=== PATIENT | female | born 1945 | race Caucasian/White ===

== ENCOUNTER 2024-07-31 16:12 | Emergency (ER) | payer MEDICARE, BC, SELFPAY ==
--- NOTE | 2024-07-31 16:26 | XR_ITS ---
Examination: CT abdomen and pelvis without contrast. Coronal 3-D reconstructions. Sagittal 2-D reconstructions. Date and time of exam:July 31, 2024 1719 hours INDICATIONS: Right upper abdominal pain beginning a few days ago COMPARISON: 06/01/2022 CTDI: vol (mGy): 9.38 DLP: (mGycm): 478 Technique: Axial images of the abdomen have been obtained, 3 mm slice thickness Intravenous contrast material has not been administered. Low dose protocols were performed. One or more of the following dose reduction techniques were used; automated exposure control, adjustment of the mA and/or KV according to patient size, use of iterative reconstruction technique. Findings: Focal pleural disease posterior right hemithorax measuring 18 mm in thickness Again noted large complex cystic mass replacing the lower lobe the liver with more internal echoes on the current exam No extrahepatic biliary tract dilatation Moderate renal parenchymal scar formation, no hydronephrosis No pericecal inflammatory change No bowel obstruction currently Abdominal aortic calcification no aneurysmal dilatation Prominent osteopenia Abundant stool in the rectum IMPRESSION: Again noted large complex cystic mass replacing the right lobe the liver, differential would include abscess, parasitic cystic disease, less likely hematoma Large amounts of stool in the rectum
[2024-07-31 16:28] VITALS: BP 127/55; PULSE 117; RESP 19; TEMP 36.7; O2SAT 92
--- NOTE | 2024-07-31 16:28 | PD.EDADULT ---
ED General RME/HPI General Chief complaint: Abdominal Pain Stated complaint: ABD PAIN Time Seen by Provider: 07/31/24 16:26 Arrival date/time: 07/31/24 16:12 CC: Right upper quadrant abdominal pain HPI ongoing for the past week to 10 days with progressive increase in severity, now severe enough does not manage with OTC medications patient presents via EMS who reports stable vital signs and route. Patient is awake alert oriented states she has had a left-sided stroke, is on blood thinners denies chest pain shortness of breath difficulty breathing. Related Data Home Medications ?Medication ?Instructions ?Recorded ?Confirmed albuterol sulfate 90 mcg/actuation 2 puff inhalation PRN PRN sob 09/05/21 07/14/24 aerosol inhaler fluticasone fur. 100 mcg-umeclid 1 ea inhalation QAM 09/05/21 07/14/24 62.5 mcg-vilant 25 mcg inhalat.powder (Trelegy Ellipta) atorvastatin 20 mg tablet 80 mg PO QDAY 07/14/24 07/14/24 duloxetine 30 mg capsule,delayed 30 mg PO QDAY 07/14/24 07/14/24 release famotidine 20 mg tablet 20 mg PO BID 07/14/24 07/14/24 propranolol 10 mg tablet 10 mg PO BID 07/14/24 07/14/24 Previous Rx's ?Medication ?Instructions ?Recorded clopidogrel 75 mg tablet (Plavix) 75 mg PO QDAY #30 tabs 09/08/21 apixaban 5 mg tablet (Eliquis) 5 mg PO BID #60 tabs 07/16/24 furosemide 20 mg tablet 20 mg PO BID #60 tabs 07/16/24 hydrocodone 5 mg-acetaminophen 325 1 tab PO Q6H PRN pain #20 tabs 07/16/24 mg tablet docusate sodium 100 mg capsule 100 mg PO QDAY #10 caps 07/31/24 (Colace) polyethylene glycol 3350 17 4 g PO QDAY #238 grams 07/31/24 gram/dose oral powder (Miralax) Allergies Allergy/AdvReac Type Severity Reaction Status Date / Time No Known Allergies Allergy Verified 06/29/22 14:28 Review of Systems Review of Systems Narrative Review of Systems: GEN: No fever, no chills, no weight loss EYES: No discharge, no visual changes, no pain HEENT: No ear pain, no congestion, no sore throat PULM: No shortness of breath, no cough, no congestion CV: No chest pain, no dyspnea on exertion, no palpitations GI: No nausea, no vomiting, no diarrhea, + pain, no constipation : No frequency, no urgency, no dysuria MUSC/SKEL: No joint pain, no back pain SKIN: No rash PSYCH: No hallucinations, no depression HEME/LYMPH: No easy bleeding or bruising tendencies NEURO: No weakness, no headache Past Medical History Past Medical History NEUROLOGIC: Positive Neurological Disorders and Cerebrovascular Accident; Negative Seizures CARDIAC: Positive Cardiac Disorders, Hypercholesterolemia and Hypertension; Negative Congestive Heart Failure RESPIRATORY: Positive Chronic Obstructive Pulmonary Disease (COPD) and Asthma GASTROINTESTINAL: Negative Gastrointestinal Disorders GENITOURINARY: Negative Genitourinary Disorders or Renal Disease MUSCULOSKELETAL: Positive Musculoskeletal Disorders and Arthritis ENT: Positive Cataracts ENDOCRINE: Negative Diabetes Mellitus Type 1 or Diabetes Mellitus Type 2 HEMATOLOGIC: Negative Blood Disorders or Sickle Cell Disease OTHER HISTORY: Positive Hospitalization, Blood Transfusions, Cancer and Cervical Cancer; Negative Blood Transfusion Reaction, Anesthesia Reactions, MRSA, VRSA or Vancomycin-Resistant Enterococci Surgical History SURGICAL: Positive Tonsillectomy, Abdominal Surgery, Bowel Surgery and Hysterectomy Social History SMOKING STATUS: Light (< 1 pack/day) SUBSTANCE USE: does not use ED Exam Narrative Physical exam: [General: In mild discomfort but not in any acute distress Head normocephalic HEENT: Eyes: Pupils are PERRLA EOMs are intact mouth pink dry membranes uvula is midline swallow symmetrical phonation is normal. Nose: No rhinorrhea no epistaxis all other subsystems of ATTR within acceptable limits Neck is supple nontender no JVD no edema Chest equal chest rise nontender to palpation Respiratory: Clear to auscultation no wheezes crackles or rubs CV: Rate rhythm is regular no murmurs rubs or clicks Abdomen mild guarding in the upper abdomen particularly on the right side no lower abdominal pain with palpation. Back: No CVA tenderness no spinous process tenderness from cervical spine thoracic and lumbar spine Skin: Intact no petechiae rash induration ulceration or crepitus Extremities: Moving all extremity against resistance cap refill less than 2 seconds neurosensory intact, no edema to lower extremities Neuro: Awake alert oriented x2, person and place, Glascow coma 15 no focal deficits] Course Course Course Narrative: Patient refused Joe catheter or straight cath and refused to give urine, patient refused enema. When asked what she would like me to do the patient states she would like to be discharged home with medicines for the constipation. I explained to the patient that she needs follow-up for the cyst. Quality Measures none Orders Category Date Time Status CT abdomen pelvis wo con Stat Exams 07/31/24 16:26 Completed B-Type Natriuretic Peptide Stat Lab 07/31/24 17:13 Completed CBC Stat Lab 07/31/24 17:13 Completed CMP [Comprehensive Metabolic Panel] Stat Lab 07/31/24 17:13 Completed Drug Screen,Urine Stat Lab 07/31/24 16:27 Ordered LDH (Lactate Dehydrogenase) Stat Lab 07/31/24 17:13 Completed Lipase Stat Lab 07/31/24 17:13 Completed Magnesium Stat Lab 07/31/24 17:13 Completed Partial Thromboplastin Time Stat Lab 07/31/24 17:13 Completed Prothrombin Time with INR Stat Lab 07/31/24 17:13 Completed Urinalysis Stat Lab 07/31/24 16:27 Ordered Vital Signs Vital signs: Vital Signs Temperature 98.1 F 07/31/24 16:28 Pulse Rate 117 H 07/31/24 16:28 Respiratory Rate 19 07/31/24 16:28 Blood Pressure 127/55 L 07/31/24 16:28 Pulse Oximetry (%) 92 L 07/31/24 16:28 Oxygen Delivery Method Room Air 07/31/24 16:28 [facility] Patient data External records reviewed:: [facility] previous records and EMS form Clinical information provided by:: patient and EMS Social determinants that could affect healthcare access:: none Patient has the following chronic illnesses:: Liver cyst How is presenting disease/condition affected by chronic disease/condition?: uneffected by Evaluation data The following diagnostics were reviewed and interpreted by me:: lab results and radiology exam(s) Lab and/or radiology exams considered but not ordered:: CBC shows mild leukocytosis, anemia of 8 and 27 this is mildly improved from the last set of vital signs Coags show an INR of 1.1 PTT is elevated at 36 CMP shows a sodium of 130 potassium of 4.2 chloride of 96 CO2 27.8 BUN of 11 creatinine 0.6 with a glucose of 163. Gap of 6. BNP of [address] of the abdomen pelvis shows a large cystic mass of the liver which is slightly larger than the CT performed in 2021. Interpretation Summary: Patient refused to give urine and refused urine catheter, states she is never had a urinary tract infection in her life . Patient was offered enema secondary to her large amount of stool which she also refused. Patient states she does not want anything done regarding the mass. Patient wants to go home and try stool softeners at home like she did last time she was discharged from the hospital . Medications Medications considered but not ordered:: None Medication administrations:: None Consultations Consultation(s) initiated? (list below): No Diagnosis Differential Diagnosis ED Complaint MDM: Liver mass, ileus, obstruction Most likely diagnosis given after review of the tests above:: Liver mass, constipation Admission Indicated Admission indicated?: not indicated Explain why admission is indicated or not indicated:: Patient refusing additional care and wants to be go home Admission Request Was there a request for admission?: No Disposition Plan Disposition Plan: Discharge Discharge Attestation Discharge Attestation: The patient and all family members were given an opportunity to ask questions and understood the discharge instructions. Discharge instructions specifically effects, indications for sooner follow up or return to the emergency department, and the expected course of current diagnosis. Patient condition: Stable Medical Decision Making Differential Diagnosis Differential Diagnosis: Liver mass, ileus, obstruction Lab Data 07/31/24 17:13 07/31/24 17:13 Labs: Lab Results 07/31/24 Range/Units 17:13 WBC 11.4 H (3.6-11.0) Thou/mm3 RBC 2.75 L (4.00-5.20) Miln/mm3 Hgb 8.8 L (12.0-16.0) g/dL Hct 27.2 L (36.0-46.0) % MCV 99 (80-100) fL MCH 32.0 (25.0-35.0) pg MCHC 32.4 (31.0-37.0) g/dl RDW Std Deviation 59.4 H (36.4-46.3) fL Plt Count 382 D (140-440) Thou/mm3 Neut % (Auto) 77 (37-80) % Lymph % (Auto) 9 L (10-50) % [place] % (Auto) 11 (0-12) % Eos % (Auto) 2 (0-10) % Baso % (Auto) 0 (0-2.5) % Neut # (Auto) 8.8 H (1.8-7.7) Thou/mm3 Lymph # (Auto) 1.0 (1.0-4.8) Thou/mm3 [place] # (Auto) 1.3 H (0.0-0.8) Thou/mm3 Eos # (Auto) 0.2 (0.0-0.5) Thou/mm3 Baso # (Auto) 0.0 (0.0-0.2) Thou/mm3 Immature Gran # (Auto) 0.04 H (0.00-0.00) Thou/mm3 Absolute Nucleated RBC 0.00 (0.00-0.00) Thou/mm3 Immature Gran % 0 (0-0) % Nucleated RBC % 0 (0) /100 WBC PT 11.6 (9.0-12.2) Seconds INR 1.1 (0.9-1.3) APTT 36.5 H D (22.0-36.0) Seconds Sodium 130 L (136-145) mMol/L Potassium 4.2 (3.4-5.1) mMol/L Chloride 96 L (98-107) mMol/L Carbon Dioxide 27.8 (20.0-31.0) mMol/L Anion Gap 6 L (7-16) BUN 11 (9-23) mg/dL Creatinine 0.4 L (0.6-1.3) mg/dL Estim Creat Clear Calc 121.4 (>60) mL/min eGFR > 60 (60 - ) See Note BUN/Creatinine Ratio 28 H (12-20) Ratio Glucose 163 H (74-106) mg/dL Calculated Osmolality 264 L (275-295) Calcium 9.6 (8.3-10.6) mg/dL Corrected Calcium 9.9 (8.5-10.1) mg/dL Magnesium 1.7 (1.6-2.6) mg/dL Total Bilirubin 0.5 (0.3-1.2) mg/dL AST 16 (0-34) U/L ALT 12 (10-49) U/L Alkaline Phosphatase 173 H (46-116) U/L Lactate Dehydrogenase 185 (120-246) U/L B-Natriuretic Peptide 184 H (0-100) pg/mL Total Protein 5.8 (5.7-8.2) gm/dL Albumin 3.6 (3.4-4.8) gm/dL Globulin 2.2 L (2.3-3.5) gm/dL Albumin/Globulin Ratio 1.6 (1.2-2.2) Lipase 20 (12-53) U/L Discharge Plan Plan Patient Disposition: HOME (Self Care) Patient condition on transfer: Stable Prescriptions/Referrals Prescriptions/Med Rec: New polyethylene glycol 3350 [Miralax] 17 gram/dose powder 4 g PO QDAY Qty: 238 0RF docusate sodium [Colace] 100 mg capsule 100 mg PO QDAY Qty: 10 0RF No Action albuterol sulfate 90 mcg/actuation HFA aerosol inhaler 2 puff INHALATION PRN PRN (Reason: sob) Rx Instructions: PRN every 4 hours Trelegy Ellipta 100-62.5-25 mcg blister with device 1 ea INHALATION QAM clopidogrel [Plavix] 75 mg Tablet 75 mg PO QDAY Qty: 30 0RF Rx Instructions: pt states takes medication at 0700 propranolol 10 mg tablet 10 mg PO BID Patient Comments: TAKE 1 TABLET BY MOUTH TWICE A DAY famotidine 20 mg tablet 20 mg PO BID Patient Comments: TAKE 1 TABLET BY MOUTH TWICE A DAY duloxetine 30 mg capsule,delayed release(DR/EC) 30 mg PO QDAY Patient Comments: TAKE 1 CAPSULE BY MOUTH EVERY DAY atorvastatin 20 mg tablet 80 mg PO QDAY furosemide 20 mg tablet 20 mg PO BID Qty: 60 2RF hydrocodone-acetaminophen 5-325 mg tablet 1 tab PO Q6H MDD 20 mg PRN (Reason: pain) Qty: 20 0RF Eliquis 5 mg tablet 5 mg PO BID Qty: 60 0RF Rx Instructions: take 2 tabs twice daily for 7 days then 1 tab twice daily Referrals: Kristopher Craven MD [Primary Care Provider] - In 1 week Problem List Clinical Impression: Abdominal pain, right upper quadrant, Constipation, Hepatic cyst Patient/Caregiver Discharge Instructions Other Activity Instructions:: Take the medications as prescribed for the constipation if there are worsening of symptoms return the emergency room medially for further evaluation. Education Materials: Abdominal Pain, ED Constipation (Adult) Additional Instructions: You have a very large liver cyst please follow-up with your primary care provider regarding an outpatient assessment of this. Print Language: Bengali Stand Alone Forms: Kiara Award Info., Patient Portal Info Letter PA/ART CRITIC Supervising Physician RUEL/ART CRITIC Supervising Physician: Duglas Paige ENP
[2024-07-31 16:38] VITALS: PULSE 124; RESP 18; O2SAT 91; BMI 25.4
[2024-07-31 17:44] LABS: Basophils % (Auto) 0 % (0-2.5); Eosinophils # (Auto) 0.2 Thou/mm3 (0.0-0.5); Eosinophils % (Auto) 2 % (0-10); Hematocrit 27.2 % (36.0-46.0); Immature Granulocytes % (Auto) 0 % (0-0); Immature Granulocytes Auto 0.04 Thou/mm3 (0.00-0.00); Lymphocytes % (Auto) 9 % (10-50); Mean Corpuscular HGB Conc 32.4 g/dl (31.0-37.0); Mean Corpuscular Volume 99 fL (80-100); Monocytes # (Auto) 1.3 Thou/mm3 (0.0-0.8); Monocytes % (Auto) 11 % (0-12); Neutrophils # (Auto) 8.8 Thou/mm3 (1.8-7.7); Neutrophils % (Auto) 77 % (37-80); Nucleated Red Blood Cell % 0 /100 WBC (0); Platelet Count 382 Thou/mm3 (140-440); RDW Standard Deviation 59.4 fL (36.4-46.3); Red Blood Count 2.75 Miln/mm3 (4.00-5.20); White Blood Count 11.4 Thou/mm3 (3.6-11.0)
[2024-07-31 18:00] LABS: Hemoglobin 8.8 g/dL (12.0-16.0)
[2024-07-31 18:16] LABS: Alanine Aminotransferase 12 U/L (10-49); Albumin, Serum 3.6 gm/dL (3.4-4.8); Albumin/Globulin Ratio 1.6 (1.2-2.2); Alkaline Phosphatase 173 U/L (46-116); Anion Gap 6 (7-16); Aspartate Amino Transferase 16 U/L (0-34); BUN/Creatinine Ratio 28 Ratio (12-20); Bilirubin,Total 0.5 mg/dL (0.3-1.2); Blood Urea Nitrogen 11 mg/dL (9-23); Calcium 9.6 mg/dL (8.3-10.6); Calcium (Corrected) 9.9 mg/dL (8.5-10.1); Carbon Dioxide 27.8 mMol/L (20.0-31.0); Chloride 96 mMol/L (98-107); Creatinine (Component) 0.4 mg/dL (0.6-1.3); Estimated Creatinine Clearance 121.4 mL/min (>60); Globulin 2.2 gm/dL (2.3-3.5); Glucose 163 mg/dL (74-106); LDH (Lactate Dehydrogenase) 185 U/L (120-246); Lipase 20 U/L (12-53); Magnesium 1.7 mg/dL (1.6-2.6); Osmolality,Calculated 264 (275-295); Potassium 4.2 mMol/L (3.4-5.1); Sodium 130 mMol/L (136-145); Total Protein 5.8 gm/dL (5.7-8.2); eGFR > 60 See Note
[2024-07-31 18:19] LABS: B-Type Natriuretic Peptide 184 pg/mL (0-100); INR 1.1 (0.9-1.3); Prothrombin Time 11.6 Seconds (9.0-12.2)
[2024-07-31 18:23] LABS: Partial Thromboplastin Time 36.5 Seconds (22.0-36.0)
[2024-07-31 18:56] VITALS: BP 126/70; PULSE 115; RESP 17; TEMP 36.8; O2SAT 94
--- NOTE | 2024-07-31 19:13 | PC.NURSE ---
PT REFUSED ENEMA, IN AND OUT CATH AND العلي CATHETER. RUEL HARDING AWARE.
[2024-07-31 20:17] VITALS: BP 116/67; PULSE 105; RESP 18; TEMP 36.8; O2SAT 97
== END 2024-07-31 22:23 | disposition home or self-care (01) ==
PROVIDERS: Registered Nurse General Practice; Emergency Provider Emergency Medicine; PCP Internal Medicine
DX: K76.89 Other specified diseases of liver (principal); K59.00 Constipation, unspecified; D72.829 Elevated white blood cell count, unspecified
CPT/HCPCS: 36415; 74176; 80053; 80307; 81001; 83615; 83690; 83735; 83880; 85025; 85610; 85730; 99284